=== PATIENT | female | born 1970 | race Caucasian/White ===

== ENCOUNTER 2019-03-19 14:48 | Emergency (ER) | payer MEDICAID ==
[2019-03-19] MEDS ORDERED: CLONIDINE HCL 0.1 MG TABLET PO ONE (15:29)
[2019-03-19 15:51] LABS: ABSOLUTE NEUTROPHIL COUNT 3.37; BASO % 0.6 % (0-6); EOS % 4.5 % (0-6); GRAN % 50.8 % (47-80); HEMATOCRIT 30.5 % (35.0-47.0); HEMOGLOBIN 8.5 gm/dl (11.6-16.0); LYMPH % 32.5 % (16-45); MEAN CELL VOLUME 77.2 fl (81-97); MEAN CORPUSCULAR HEMOGLOBIN 21.5 pg (27-33); MEAN CORPUSCULAR HGB CONC 27.9 g/dl (32-36); MEAN PLATELET VOLUME 9.2 fl (7.4-10.4); MONO % 11.6 % (0-9); PLATELET COUNT 352 K/uL (130-400); RED BLOOD COUNT 3.95 M/uL (3.80-5.40); RED CELL DISTRIBUTION WIDTH 16.8 % (11.5-14.5); WHITE BLOOD COUNT W/O DIFF 6.6 K/uL (4.2-12.2)
[2019-03-19 16:00] LABS: BILIRUBIN,TOTAL < 0.20 mg/dL (0.2-1.0); BLOOD UREA NITROGEN 15 mg/dL (6-20); CREATININE 0.7 mg/dL (0.5-0.9); EST GLOMERULAR FILTRATION RATE > 60 mL/min
[2019-03-19 16:01] LABS: TOTAL PROTEIN 7.2 g/dL (6.6-8.7)
[2019-03-19 16:03] LABS: GLUCOSE,RANDOM 84 mg/dL (74-109)
[2019-03-19 16:05] LABS: ALT/SGPT 8 U/L (<33)
[2019-03-19 16:06] LABS: ALB/GLOB RATIO 1.4 (1.1-1.8); ALBUMIN 4.2 g/dL (4.0-5.0); ALKALINE PHOSPHATASE 73 U/L (35-104); AST/SGOT 17 U/L (10.0-35.0)
--- NOTE | 2019-03-19 16:22 | RADIOLOGY REPORT ---
EXAMINATION: Two View Chest Radiographs EXAM DATE: 03/19/2019 4:15 PM TECHNIQUE: Frontal and lateral views INDICATION: htn COMPARISON: None ENCOUNTER: Not applicable FINDINGS: Heart is not enlarged. Lungs and pleural spaces are clear. Mild elevation of the left hemidiaphragm. IMPRESSION: No acute cardiopulmonary abnormality. Dictated by: Ernesto Gloria MD on 03/19/2019 4:19 PM. .
--- NOTE | 2019-03-19 16:27 | CT SCAN REPORT ---
EXAMINATION: CT Head without IV Contrast EXAM DATE: 03/19/2019 4:15 PM TECHNIQUE: Standard protocol CT images of the head were obtained without intravenous contrast. Kidd l and sagittal reconstructed images were created. INDICATION: difficulty walking COMPARISON: None HAND DOMINANCE: Unknown. ENCOUNTER: Not applicable FINDINGS: Ventricles, basal cisterns, and sulci are mildly consistent with generalized cerebral atrophy. No mid line shift or mass effect. There is confluent periventricular hypoattenuation extending to the centru m semiovale most consistent with chronic microvascular ischemia, though somewhat unusual in a 48-year -old patient and correlate for other demyelinating processes. There appear to be old lacunar infarcts . Areas of hypoattenuation within the oleg as well. No conclusive evidence of acute ischemia. No intr acranial mass or hemorrhage. Atherosclerotic calcification. Paranasal sinuses and mastoid air cells a re essentially clear. IMPRESSION: 1. No acute intracranial abnormality. 2. Probable changes of chronic microvascular ischemia though correlate for other demyelinating proces ses in this 48-year-old patient. Dictated by: Ernesto Gloria MD on 03/19/2019 4:21 PM. .
--- NOTE | 2019-03-19 16:52 | Emergency Department Record ---
History of Present Illness - General Chief Complaint: Hypertension Stated Complaint: HIGH BLOOD PRESSURE Time Seen by Provider: 03/19/19 15:13 Source: Patient, Family Mode of Arrival: Ambulatory Limitations: No limitations - History of Present Illness Initial Comments: pt was sent here from a drs office because she has htn. she has no other symptoms. she has not been to a dr in 25 yrs until today. she has been walking with a walker intermittently because she is weak. she is not sure why. she is a very poor historian. she was noted to have htn 3 wks ago at the dentist MD Complaint: Difficulty walking Onset/Timin -: Week(s) History of Same: Yes Improves With: Nothing Associated Symptoms: Denies other symptoms - Kathryn Coma Scale Eye Response: (4) Open spontaneously Motor Response: (6) Obeys commands Verbal Response: (5) Oriented Kathryn Total: 15 - Related Data Previous Rx's Medication Instructions Recorded Clonidine HCl 0.1 mg PO DAILY #14 tablet 03/19/19 Docusate Sodium [Colace] 100 mg PO QHS #14 cap 03/19/19 Ferrous Sulfate 325 mg PO DAILY #14 tab 03/19/19 Allergies Allergy/AdvReac Type Severity Reaction Status Date / Time No Known Drug Allergies Allergy Verified 03/19/19 15:03 Travel Screening - Travel/Exposure Within Last 30 Days Have you traveled within the last 30 days?: No - Travel/Exposure Within Last Year Have you traveled outside the [place] in the last year?: No - Additonal Travel Details Have you been exposed to anyone with a communicable illness?: No - Travel Symptoms Symptom Screening: None Review of Systems Reviewed: No additional complaints except as noted below Constitutional: Reports: As per HPI, Weakness. Denies: Chills, Fever, Malaise, Night sweats, Weight change Eyes: Reports: As per HPI. Denies: Eye discharge, Eye pain, Photophobia, Vision change ENT: Reports: As per HPI. Denies: Congestion, Dental pain, Ear pain, Epistaxis, Hearing loss, Throat pain Respiratory: Reports: As per HPI. Denies: Cough, Dyspnea, Hemoptysis, Stridor, Wheezes Cardiovascular: Reports: As per HPI. Denies: Arrhythmia, Chest pain, Dyspnea on exertion, Edema, Murmurs, Orthopnea, Palpitations, Paroxysmal nocturnal dyspnea, Rheumatic Fever, Syncope Endocrine: Reports: As per HPI. Denies: Fatigue, Heat or cold intolerance, Polydipsia, Polyuria Gastrointestinal: Reports: As per HPI. Denies: Abdominal pain, Constipation, Diarrhea, Hematemesis, Hematochezia, Melena, Nausea, Vomiting Genitourinary: Reports: As per HPI. Denies: Abnormal menses, Discharge, Dyspareunia, Dysuria, Frequency, Hematuria, Incontinence, Retention, Urgency Musculoskeletal: Reports: As per HPI. Denies: Arthralgia, Back pain, Gout, Joint swelling, Myalgia, Neck pain Skin: Reports: As per HPI. Denies: Bruising, Change in color, Change in hair/nails, Lesions, Pruritus, Rash Neurological: Reports: As per HPI. Denies: Abnormal gait, Confusion, Headache, Numbness, Paresthesias, Seizure, Tingling, Tremors, Vertigo, Weakness Psychiatric: Reports: As per HPI. Denies: Anxiety, Auditory hallucinations, Depression, Homicidal thoughts, Suicidal thoughts, Visual hallucinations Hematological/Lymphatic: Reports: As per HPI. Denies: Anemia, Blood Clots, Easy bleeding, Easy bruising, Swollen glands Past Medical History - SOCIAL HISTORY Smoking Status: Never smoker Alcohol Use: None Drug Use: None - RESPIRATORY Hx Respiratory Disorders: No - CARDIOVASCULAR Hx Cardio Disorders: Yes Hx Hypertension: Yes - NEURO Hx Neuro Disorders: No - GI Hx GI Disorders: No - Hx Genitourinary Disorders: No - ENDOCRINE Hx Endocrine Disorders: No - MUSCULOSKELETAL Hx Musculoskeletal Disorders: No - PSYCH Hx Psych Problems: No - HEMATOLOGY/ONCOLOGY Hx Hematology/Oncology Disorders: No Family Medical History Any Significant Family History?: No Hx HTN: Mother Physical Exam - General General Appearance: Alert, Oriented x3, Cooperative, Mild distress - Head Head exam: Normal inspection - Eye Eye exam: Normal appearance, PERRL, EOMI Pupils: Normal accommodation - ENT ENT exam: Normal exam, Mucous membranes moist, Normal external ear exam, Normal orophraynx Ear exam: Normal external inspection. negative: External canal tenderness Nasal Exam: Normal inspection. negative: Discharge, Sinus tenderness Mouth exam: Normal external inspection, Tongue normal Teeth exam: Normal inspection. negative: Dental caries Throat exam: Normal inspection. negative: Tonsillar erythema, Tonsillar exudate - Neck Neck exam: Normal inspection, Full ROM. negative: Tenderness - Respiratory Respiratory exam: Normal lung sounds bilaterally. negative: Respiratory distress - Cardiovascular Cardiovascular Exam: Regular rate, Normal rhythm, Normal heart sounds - GI/Abdominal GI/Abdominal exam: Soft, Normal bowel sounds. negative: Tenderness - Rectal Rectal exam: Deferred - exam: Deferred - Extremities Extremities exam: Normal inspection, Full ROM, Normal capillary refill. negative: Tenderness - Back Back exam: Reports: Normal inspection, Full ROM. Denies: Muscle spasm, Rash noted, Tenderness - Neurological Neurological exam: Alert, CN II-XII intact, Oriented X3. negative: Normal gait - Psychiatric Psychiatric exam: Normal affect, Normal mood - Skin Skin exam: Dry, Intact, Normal color, Warm Course Vital Signs 03/19/19 03/19/19 14:51 15:11 Temperature 98.6 F Pulse Rate 90 Respiratory 18 Rate Blood Pressure 204/126 Blood Pressure 203/113 [Left Arm] Pulse Ox 100 - Reevaluation(s) Reevaluation #1: 03/19/19 17:[address] shows microvascular chgs vs other demyleinating process 03/19/19 17:11 Medical Decision Making - Lab Data Result diagrams: 03/19/19 15:44 03/19/19 15:44 Lab Results 03/19/19 03/19/19 Range/Units 15:44 15:44 WBC 6.6 (4.2-12.2) K/uL RBC 3.95 (3.80-5.40) M/uL Hgb 8.5 L (11.6-16.0) gm/dl Hct 30.5 L (35.0-47.0) % MCV 77.2 L (81-97) fl MCH 21.5 L (27-33) pg MCHC 27.9 L (32-36) g/dl RDW 16.8 H (11.5-14.5) % Plt Count 352 (130-400) K/uL MPV 9.2 (7.4-10.4) fl Gran % 50.8 (47-80) % Lymphocytes % 32.5 (16-45) % Monocytes % 11.6 H (0-9) % Eosinophils % 4.5 (0-6) % Basophils % 0.6 (0-6) % Absolute Neutrophils 3.37 Sodium 142 (136-145) mmol/L Potassium 3.5 (3.4-4.5) mmol/L Chloride 103 (98-107) mmol/L Carbon Dioxide 29.0 (22-29) mmol/L Anion Gap 10.0 (7-16) BUN 15 (6-20) mg/dL Creatinine 0.7 (0.5-0.9) mg/dL Estimated GFR > 60 mL/min Random Glucose 84 (74-109) mg/dL Calcium 9.1 (8.6-10.0) mg/dL Total Bilirubin < 0.20 L (0.2-1.0) mg/dL AST 17 (10.0-35.0) U/L ALT 8 (<33) U/L Alkaline Phosphatase 73 (35-104) U/L Total Protein 7.2 (6.6-8.7) g/dL Albumin 4.2 (4.0-5.0) g/dL Globulin 3.0 (1.4-4.8) gm/dL Albumin/Globulin Ratio 1.4 (1.1-1.8) Disposition Disposition: Discharge Clinical Impression: Weakness HTN (hypertension) Qualifiers: Hypertension type: essential hypertension Qualified Code(s): I10 - Essential (primary) hypertension Anemia Qualifiers: Anemia type: unspecified type Qualified Code(s): D64.9 - Anemia, unspecified Disposition: Home, Self-Care Condition: (2) Stable Instructions: Hypertension (ED), Anemia (ED), Weakness (ED) Additional Instructions: follow up with family doctor this week without fail. have mri of brain. monitor blood pressure Prescriptions: Docusate Sodium [Colace] 100 mg PO QHS #14 cap Clonidine HCl 0.1 mg PO DAILY #14 tablet Ferrous Sulfate 325 mg PO DAILY #14 tab Forms: Patient Portal Access Quality - Quality Measures Quality Measures: N/A - Blood Pressure Screening Does Patient Have Any of the Following: No Blood Pressure Classification: Hypertensive Reading Systolic Measurement: 204 Diastolic Measurement: 126 Screening for High Blood Pressure: < First Hypertensive BP, F/U Documented > [G8950] First Hypertensive Follow-up Interventions: Follow-up with rescreen GT 1 day and LT 4 weeks.
== END 2019-03-19 17:31 | disposition home or self-care (01) ==
LOC: ER 14:48
DX: R53.1 Weakness (principal); I10 Essential (primary) hypertension; D64.9 Anemia, unspecified; R26.2 Difficulty in walking, not elsewhere classified
CPT/HCPCS: 70450; 71046; 80053; 85025; 93005; 93010; 99284